=== PATIENT | male | born 1930 | race Caucasian/White ===

== ENCOUNTER 2017-03-05 11:29 | Emergency (ER) | payer MEDICARE, OTHER ==
--- NOTE | 2017-03-05 12:19 | UC ---
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 Now has sharp sensation with breathing or moving on lateral ribs. Denies SOB. - History Of Current Complaint Chief Complaint: UCUpperExtremity Stated Complaint: RIB INJURY Time Seen by Provider: 03/05/17 12:11 Hx Obtained From: Patient Onset/Duration: Sudden Onset Onset Of Pain: Immediate Severity Initially: Moderate Severity Currently: Mild Mechanism Of Injury: Fall From Height Of: - few inches Aggravating Factor(s): Movement, Deep Breathing, Cough Alleviating factor(s): Rest Associated Signs And Symptoms: Positive: Negative - Allergies/Home Medications Allergies/Adverse Reactions: Allergies Allergy/AdvReac Type Severity Reaction Status Date / Time No Known Allergies Allergy Verified 08/10/16 07:06 Home Medications: Home Medications Naproxen Sodium-Diphenhydramin [Aleve PM 220-25 mg] 1 tab PO 03/05/17 [History] PMH/Surg Hx/FS Hx/Imm Hx Endocrine History Of: Reports: Diabetes - TYPE 2 Cardiovascular History Of: Reports: Hypertension - not on meds Denies: Pacemaker/ICD Comment Only: Cardiac Disorders - multiple tests done - Surgical History Surgical History: Yes Surgery Procedure, Year, and Place: [place] [facility] [place] [facility] [place] [facility] [place] (approx 5 years ago) PARTIAL RIGHT KNEE REPLACEMENT, [facility] - Family History Known Family History: Positive: Hypertension - Social History Occupation: Retired Alcohol Use: Rare Substance Use Type: None Smoking Status (MU): Former Smoker Type: Cigarettes Amount Used/How Often: TRIED IT 50 YEARS AGO FOR ABOUT 3 WEEKS NONE SINCE Have You Smoked in the Last Year: No When Did the Patient Quit Smoking/Using Tobacco: 60 yrs ago - Immunization History Most Recent Influenza Vaccination: 2012 Most Recent Tetanus Shot: 2012 Most Recent Pneumonia Vaccination: Within 5 years Review of Systems Constitutional: Negative Skin: Negative Eyes: Negative ENT: Negative Respiratory: Negative Cardiovascular: Negative Gastrointestinal: Negative Genitourinary: Negative Motor: Negative Neurovascular: Negative Musculoskeletal: Arthralgia - R ribs Neurological: Negative Psychological: Negative All Other Systems Reviewed And Are Negative: Yes Physical Exam Triage Information Reviewed: Yes Appearance: Well-Appearing, Pain Distress - mild, with breathing Vital Signs: Initial Vital Signs Temp 98.4 F 03/05/17 11:49 Pulse 80 03/05/17 11:49 Resp 18 03/05/17 11:49 BP 165/83 03/05/17 11:49 Pulse Ox 100 03/05/17 11:49 Vital Signs Reviewed: Yes Eye Exam: Normal Eyes: Positive: Conjunctiva Clear ENT Exam: Normal ENT: Positive: Normal ENT inspection, Hearing grossly normal, Pharynx normal, TMs normal Dental: Negative: Percussion Tenderness @, Abscess @ Neck exam: Normal Respiratory: Positive: Normal breath sounds, No respiratory distress, No accessory muscle use. Negative: Chest non-tender - R ribs tenderness Cardiovascular Exam: Normal Cardiovascular: Positive: RRR, No Murmur Abdominal Exam: Normal Musculoskeletal Exam: Other - no pain with indirect stress Musculoskeletal: Positive: ROM Intact - baseline Neurological Exam: Normal Neurological: Positive: Alert Psychological Exam: Normal Skin Exam: Normal Truncal Trauma Course/Dx - Differential Dx/Diagnosis Provider Diagnoses: R rib contusion Discharge - Discharge Plan Condition: Stable Disposition: HOME Patient Education Materials: Rib Contusion (ED) Referrals: Mena Mcbride MD [Primary Care Provider] - Additional Instructions: I do not see signs of broken bones on your x-ray. If the radiologist sees a problem, I will call you at home later today. Please go to the hospital at any time if you become short of breath, have severe pain, or develop fever and cough. See Dr. Mcbride's office if you are unable to manage your pain with naproxen.
--- NOTE | 2017-03-05 13:23 | RAD ---
Indication: RIGHT rib pain post fall. Comparison: May 20, 2015 Technique: 5 view exam including PA chest and dedicated RIGHT rib views. Report: Suggestion of nondisplaced fractures at the RIGHT sixth and seventh ribs at the costochondral junctions. No pneumothorax or pleural effusion evident. Minimal bibasilar subsegmental atelectasis. The heart, pulmonary vasculature, and mediastinal contours are unremarkable. IMPRESSION: Suggestion of nondisplaced fractures of the RIGHT sixth and seventh ribs at the costochondral junctions corresponding with the region of clinical concern based on the skin marker. Negative for pneumothorax.
[2017-03-05 13:42] VITALS: BP 143/83
== END 2017-03-05 13:40 | disposition home or self-care (01) ==
LOC: UCEAST 11:29
DX: S20.211A Contusion of right front wall of thorax, initial encounter (principal); W19.XXXA Unspecified fall, initial encounter; Y93.89 Activity, other specified; Y92.9 Unspecified place or not applicable; E11.9 Type 2 diabetes mellitus without complications; I10 Essential (primary) hypertension; Z96.651 Presence of right artificial knee joint; Z87.891 Personal history of nicotine dependence
CPT/HCPCS: 99212; G0463

== ENCOUNTER 2018-03-19 10:08 | Emergency (ER) | payer MEDICARE, OTHER ==
[2018-03-19] MEDS ORDERED: NS 0.9% 1000 ML* 1,000 ML IV SCH (10:15)
--- NOTE | 2018-03-19 10:39 | RAD ---
INDICATION: CVA. COMPARISON: Comparison is made with a prior CT of the brain from October 24, 2011. TECHNIQUE: Contiguous axial sections of the brain were obtained from the skull base to the vertex without contrast. FINDINGS: The ventricles, cisterns and sulci are prominent consistent with diffuse atrophy. There is a focal CSF density area present in the left lentiform nucleus consistent with an old infarct. There are patchy areas of decreased attenuation in the subcortical and periventricular white matter most consistent with moderate chronic small vessel ischemic changes. There are CSF density collections adjacent to both frontal lobes which appear unchanged most consistent with chronic subdural hygromas. No other focal abnormality or mass effect is seen. There is no evidence for hemorrhage. No significant focal osseous abnormality is seen. The visualized portion of the paranasal sinuses and mastoid air cells appear clear. The results of this examination were called to the referring clinician at 1030 hours. IMPRESSION: 1. NO EVIDENCE FOR GROSS ACUTE INFARCT, MASS EFFECT OR HEMORRHAGE. 2. 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 3. FINDINGS SUGGESTIVE OF MODERATE CHRONIC SMALL VESSEL ISCHEMIC CHANGES. 4. BILATERAL CSF DENSITY COLLECTIONS ADJACENT TO THE FRONTAL LOBES MOST CONSISTENT WITH CHRONIC SUBDURAL HEMATOMAS, UNCHANGED.
[2018-03-19 10:54] LABS: ABS Basophils 0 10^3/ul (0-0.2); ABS Eosinophils 0.1 10^3/ul (0-0.6); ABS Lymphocytes 1.5 10^3/ul (1.0-4.8); ABS Monocytes 0.6 10^3/ul (0-0.8); ABS Neutrophils 4.5 10^3/ul (1.5-7.7); ABS Nucleated RBC 0 10^3/ul; Eosinophil % 1.4 % (0-6); Hematocrit 47 % (42-52); Hemoglobin 15.9 g/dl (14.0-18.0); Lymphocyte % 22.3 % (25-47); Mean Corpuscular HGB Conc 34 g/dl (31-36); Mean Corpuscular Hemoglobin 32 pg (27-31); Mean Corpuscular Volume 95 fL (80-94); Mean Platelet Volume 8.8 um3 (7.4-10.4); Nucleated Red Blood Cells % 0.1; Platelet Count 171 10^3/ul (150-450); Red Blood Count 4.95 10^6/ul (4.0-5.4); Red Cell Distribution Width 14 % (10.5-15); White Blood Count 6.7 10^3/ul (3.5-10.8)
[2018-03-19 11:00] LABS: INR 0.9 (0.77-1.02)
[2018-03-19 11:21] LABS: Urine Appearance Clear; Urine Blood Negative (Negative); Urine Color Yellow; Urine Ketones Negative (Negative); Urine Protein 2+(100 mg/dL) (Negative); Urine Specific Gravity 1.011 (1.010-1.030); Urine Urobilinogen Negative (Negative)
[2018-03-19 11:34] LABS: EGFR Non-African American 56.2 (>60)
[2018-03-19] MEDS ORDERED: Iodixanol* (CONTRAST) 320 MG/ML 100 ML SDV IV ONE (11:37)
[2018-03-19] MEDS ORDERED: hydrALAZINE IV* 20 MG/ML VIAL IV SLOW PU PRN (12:39)
[2018-03-19] MEDS ORDERED: Dextrose 50% Syringe 50 ML* 25 GM/50 ML SYRINGE IV PUSH PRN (12:56)
--- NOTE | 2018-03-19 12:57 | RAD ---
INDICATION: CVA. RIGHT-sided weakness. Difficulty speaking. COMPARISON: March 19, [address] October 24, 2011 CT angiogram head and neck. TECHNIQUE: Multidetector CT images were obtained from the aortic arch to the vertex of the head with 80 mL Visipaque 320 IV contrast. Arterial phase of enhancement. Multiplanar reformation including maximum intensity projection. 3-D arterial volume rendering. Stenosis estimations based on denominator of distal arterial diameter. NECK ANGIOGRAM REPORT: Normal configuration of the branch vessels at the aortic arch. Atherosclerotic plaque present without hemodynamic significant ostial stenosis. Tortuous RIGHT common carotid artery. Predominant calcific plaque at the RIGHT carotid bulb and proximal internal carotid artery results in approximate 50% short segment stenosis. Calcific and noncalcific plaque results in approximate 0.7 cm length segment approximate 99% stenosis at the proximal LEFT internal carotid artery. Mild calcific plaque at the ostium of the RIGHT vertebral artery without suggestion of hemodynamic significant stenosis. Mild calcific plaque at the distal segment of the LEFT vertebral artery with resulting approximate 50% stenosis. NECK ANGIOGRAM IMPRESSION: 1. Approximate 50% short segment stenosis at the proximal segment of the RIGHT internal carotid artery. 2. Calcific and noncalcific plaque results in approximate 0.7 cm length segment approximate 99% stenosis at the proximal LEFT internal carotid artery with severe progression compared with the 2011 exam. Only the peripheral component of the plaque is calcified. HEAD ANGIOGRAM REPORT: Mild circumferential calcific plaque at the bilateral carotid siphons without suggestion of hemodynamic significant stenosis. No hemodynamic significant stenosis of the M1 or M2 segments of the middle cerebral arteries or A1 or A2 segments of the anterior cerebral arteries. Patent basilar artery. Unremarkable cerebellar artery origins. Patent posterior cerebral arteries supplied primarily by the posterior circulation with normal variant hypoplastic posterior communicating arteries. No intracranial aneurysm evident. Normal opacification of the dominant dural venous sinuses. HEAD ANGIOGRAM IMPRESSION: No central intracranial arterial occlusion or hemodynamically significant stenosis evident. CPT II Codes: 3100F Results discussed with Dr. Mayer 03/19/2018 12:54 PM EDT
[2018-03-19] MEDS ORDERED: Aspirin 81 mg CHEW TAB* 81 MG TAB.CHEW PO SCH (13:00)
--- NOTE | 2018-03-19 14:08 | HP ---
ADDENDUM NOW INCLUDED ON THIS REPORT CC: Dr. Mcbride; Dr. Nur * HISTORY AND PHYSICAL: DATE OF ADMISSION: 03/19/18 - EMERGENCY DEPT. PRIMARY CARE PROVIDER: Dr. Mcbride. CHIEF COMPLAINT: Right-sided weakness. HISTORY OF PRESENT ILLNESS: Chidi Way is an 87-year-old male with history of diabetes, who presents to the hospital with complaints of right-sided weakness. The patient stated that at 6 a.m. he woke up, went to the bathroom, did okay. At 8:30 a.m., he woke up and could not move. He stated that his right side was flaccid. He subsequently was evaluated in the emergency department for stroke and was noted to have right-sided weakness, but his NIH scale was 2 at that point and improving. Also, his CT of the brain shows possibility of bilateral chronic subdural hematomas. On the basis of that, tPA was not administered. The patient currently feels better and his right side is getting stronger. 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 This history and physical is read in advance of the decision being made if the patient is actually admitted or going to be transferred. PAST MEDICAL HISTORY: 1. History of hypertension. 2. Diabetes. 3. History of chronic kidney disease, stage 2. 4. History of L4 vertebroplasty in 2007 and L3 vertebroplasty in 2012. 5. History of right knee arthroscopic surgery. MEDICATIONS: Include: 1. Multivitamin 1 tablet daily. 2. Lantus insulin 34 units at bedtime. 3. Lispro insulin 10 units subcutaneously 3 times a day with meals. 4. Lipitor 10 mg daily. ALLERGIES: No known drug allergies. FAMILY HISTORY: Positive for mother who of CVA at the age of 65 and father who of heart disease in his 70s. SOCIAL HISTORY: The patient denies any tobacco, alcohol or drug use. 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 His daughter, present by the bedside, is his healthcare proxy. He is a full code. REVIEW OF SYSTEMS: Please see history of present illness. All the remaining 12 systems were reviewed with the patient and were otherwise negative. PHYSICAL EXAMINATION GENERAL: The patient is a very pleasant 87-year-old male, who is in no acute distress. Alert, awake, and oriented x3. VITAL SIGNS: Blood pressure currently of 160/94, but the patient presented with a blood pressure of 215/107. Heart rate currently is 87, respiratory rate 21, oxygen saturation 97% on room air, temperature of 98.3. HEENT: Head: Atraumatic, normocephalic. Eyes: Pupils are equal, reactive to light and accommodation. Oropharynx clear. Mucosa moist. NECK: Supple. No JVD. No bruits bilaterally. RESPIRATORY: Clear to auscultation bilaterally. CARDIOVASCULAR: Regular rate and rhythm. systolic murmur, localized in the right upper sternal border at 3/6 radiating to bilateral carotids. ABDOMEN: Soft, nontender. Bowel sounds are present in all 4 quadrants. EXTREMITIES: There is no edema. Pulses are 2+ bilaterally. No clubbing or cyanosis. NEURO EVALUATION: The patient has right-sided weakness. His right shoulder shrug is 4/5. He has mild right pronator drift. His right hand reserve operator is 4+/5. His right lower extremity motor is 4+/5. Ambulation was not checked during the visit. His speech is clear. Sensation grossly intact. PSYCHIATRIC EVALUATION: The patient is pleasant, cooperative with evaluation, oriented x3 with no evidence of anxiety or depression. SKIN: On evaluation of the skin, no ecchymotic area of rashes noted. DIAGNOSTIC STUDIES/LAB DATA: Laboratory data showed white blood cell count of 6.7, hemoglobin of 15.9, hematocrit of 47, MCV of 95, and platelets of 171. INR was 0.9. Sodium was 139, potassium 4.1, chloride 106, carbon dioxide 25, BUN 17, creatinine 1.22 consistent with prior. Liver function tests were unremarkable. Random glucose 135. Urinalysis positive for trace rbc's and trace protein. 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 The patient's EKG showed normal sinus rhythm with heart rate of 74 beats per minute, CO of 348 which is a very significant first-degree AV block and right bundle branch block. Comparing with an EKG from 2013, the patient at that point also had prolonged CO interval, currently it is more advanced. His right bundle branch block is chronic. Brain CT, impression: "No evidence for gross acute infarct, mass effect or hemorrhage. Old infarct in the left lentiform nucleus. Findings suggestive for moderate chronic small vessel ischemic changes. Bilateral CSF density collections adjacent to the frontal lobes most consistent with chronic subdural hematomas, unchanged from 2012." ASSESSMENT AND PLAN: 1. Acute cerebrovascular accident with residual right-sided weakness that is improving. At this point, the patient was not a good candidate for tPA due to his history of chronic subdural hematomas as well as his improvement. He does have significant left-sided carotid stenosis and at this point he is being evaluated for possibility of transfer from the emergency department to a tertiary care center where a vascular surgeon is available. This history and physical/consult is being dictated in case the patient was admitted to our facility. Dr. Nur already consulted on the patient from a Neurology standpoint. He recommended baby aspirin on a daily basis. If he is going to be admitted, he is going to be placed on neuro checks and Physical Therapy and Occupational Therapy is going to see the patient in consultation. We will keep his blood pressures with permissive hypertension in the 180s range. 2. For his diabetes, the patient is going to be placed on insulin sliding scale. Hemoglobin A1c is going to be checked in the morning. 3. For his dyslipidemia, we will increase the patient's Lipitor to 20 mg daily and check fasting lipid profile in the morning. 4. In regards to the patient's carotid stenosis, as mentioned above, [facility] from [facility] was notified and we will await decision. 5. The patient's code status is full and his surrogate and healthcare proxy is his daughter. TIME SPENT: Approximately 72 minutes were spent on evaluation of this patient in the emergency department, more than half of that time was spent [id number] with the patient doing the interview and physical exam. [id number] #: [id number] #: [id number] MISSAEL
--- NOTE | 2018-03-19 14:28 | ED ---
Gabriel Rosales Tiffany, scribed for Fernando Mayer on 03/19/18 at 1027 . Neurological HPI - HPI Summary HPI Summary: 87 y/o M YADI presents with right-sided weakness since 08:00 on 03/19/18. Symptoms aggravated and alleviated by nothing. EMS delivers HPI. Last known normal was 06:30 when patient woke up, went to bathroom then back to bed. At 08: 00, patient woke up, unable to move right side for 30 minutes. Upon retirement rescue team arrival to scene at 09:15, pt has difficulty forming words. Upon EMS arrival to scene, pt alert and oriented. En route, pt hypertensive, no slurred speech, no diaphoresis. - History of Current Complaint Stated Complaint: STROKE LIKE ACTIVITY Time Seen by Provider: 03/19/18 10:10 Hx Obtained From: EMS Onset/Duration: Sudden Onset, Started hours ago - 2 hours, Still Present Neurological Deficit Location: RUE, RLE Aggravating: Nothing Alleviating: Nothing - Allergy/Home Medications Allergies/Adverse Reactions: Allergies Allergy/AdvReac Type Severity Reaction Status Date / Time No Known Allergies Allergy Verified 08/10/16 07:06 Home Medications: Home Medications Atorvastatin* [Lipitor*] 10 mg PO DAILY 03/19/18 [History Confirmed 03/19/18] Insulin GLARGINE(*) [Lantus(*)] 34 units SUBCUT BEDTIME 03/19/18 [History Confirmed 03/19/18] Insulin LISPRO* [HumaLOG*] 10 units SUBCUT TID AC PRN 03/19/18 [History Confirmed 03/19/18] Multivitamins/Minerals TAB* [Theragran/minerals TAB*] 1 tab PO DAILY 03/19/18 [ History Confirmed 03/19/18] PMH/Surg Hx/FS Hx/Imm Hx Previously Healthy: No Endocrine/Hematology History: Reports: Hx Diabetes - TYPE 2 Cardiovascular History: Reports: Hx Hypertension - not on meds, Other Cardiovascular Problems/Disorders - ELEVATED CHOLESTEROL CONTROL WITH MED Denies: Hx Pacemaker/ICD Musculoskeletal History: Reports: Hx Arthritis - LOWER BACK, Hx Back Problems - Vertebralplasty, lumbar sprain Sensory History: Reports: Hx Contacts or Glasses - GLASSES Denies: Hx Hearing Aid Opthamlomology History: Reports: Hx Contacts or Glasses - GLASSES Psychiatric History: Denies: Hx Panic Disorder - Surgical History Surgery Procedure, Year, and Place: 2008 VERTEBROPLASTY, [facility] [place]. 2009 CARDIAC CATHERIZATION, [facility] [place]. 2013 L3 VERTEBROPLASTY, [facility] [place]. 2011 (approx 5 years ago) PARTIAL RIGHT KNEE REPLACEMENT, JOELLEN Hx Anesthesia Reactions: No Infectious Disease History: Denies: Hx Clostridium Difficile, Hx Hepatitis, Hx Human Immunodeficiency Virus (HIV), Hx of Known/Suspected MRSA, Hx Shingles, Hx Tuberculosis, Hx Known/ Suspected VRE, Hx Known/Suspected VRSA, History Other Infectious Disease - Family History Known Family History: Positive: Hypertension - Social History Alcohol Use: Rare Hx Substance Use: No Substance Use Type: Reports: None Hx Tobacco Use: Yes Smoking Status (MU): Former Smoker Type: Cigarettes Amount Used/How Often: TRIED IT 50 YEARS AGO FOR ABOUT 3 WEEKS NONE SINCE Have You Smoked in the Last Year: No Review of Systems Negative: Skin Diaphoresis Positive: Weakness - Right sided. Negative: Slurred Speech All Other Systems Reviewed And Are Negative: Yes Physical Exam - Summary Physical Exam Summary: Appearance: Well appearing, no pain distress Skin: warm, dry, reflects adequate perfusion Head/face: normal Eyes: EOMI, MARIA E ENT: normal Neck: supple, non-tender Respiratory: CTA, breath sounds present Cardiovascular: RRR, pulses symmetrical Abdomen: non-tender, soft Bowel: present Musculoskeletal: normal, strength/ROM intact Neuro: normal, sensory motor intact, A&Ox3 Triage Information Reviewed: Yes Vital Signs On Initial Exam: Initial Vitals Temp Pulse Resp BP Pulse Ox 98.3 F 72 12 215/107 96 03/19/18 10:20 03/19/18 10:20 03/19/18 10:20 03/19/18 10:20 03/19/18 10:20 Vital Signs Reviewed: Yes Diagnostics - Vital Signs Vital Signs Temp Pulse Resp BP Pulse Ox 03/19/18 12:17 55 16 193/80 96 03/19/18 12:00 55 17 97 03/19/18 11:18 56 11 164/84 96 03/19/18 11:00 19 03/19/18 10:47 15 198/97 03/19/18 10:29 73 17 215/107 96 03/19/18 10:20 98.3 F 72 18 215/107 96 - Laboratory Lab Results: Lab Results 03/19/18 03/19/18 03/19/18 Range/Units 10:38 10:38 10:38 WBC 6.7 (3.5-10.8) 10^3/ul RBC 4.95 (4.0-5.4) 10^6/ul Hgb 15.9 (14.0-18.0) g/dl Hct 47 (42-52) % MCV 95 H (80-94) fL MCH 32 H (27-31) pg MCHC 34 (31-36) g/dl RDW 14 (10.5-15) % Plt Count 171 (150-450) 10^3/ul MPV 8.8 (7.4-10.4) um3 Neut % (Auto) 67.0 (38-83) % Lymph % (Auto) 22.3 L (25-47) % Stephens % (Auto) 8.7 H (0-7) % Eos % (Auto) 1.4 (0-6) % Baso % (Auto) 0.6 (0-2) % Absolute Neuts (auto) 4.5 (1.5-7.7) 10^3/ul Absolute Lymphs (auto) 1.5 (1.0-4.8) 10^3/ul Absolute Monos (auto) 0.6 (0-0.8) 10^3/ul Absolute Eos (auto) 0.1 (0-0.6) 10^3/ul Absolute Basos (auto) 0 (0-0.2) 10^3/ul Absolute Nucleated RBC 0 10^3/ul Nucleated RBC % 0.1 INR (Anticoag Therapy) 0.90 (0.77-1.02) APTT 31.0 (26.0-36.3) seconds Sodium 139 (139-145) mmol/L Potassium 4.1 (3.5-5.0) mmol/L Chloride 106 (101-111) mmol/L Carbon Dioxide 25 (22-32) mmol/L Anion Gap 8 (2-11) mmol/L BUN 17 (6-24) mg/dL Creatinine 1.22 H (0.67-1.17) mg/dL Est GFR ( Amer) 72.3 (>60) Est GFR (Non-Af Amer) 56.2 (>60) BUN/Creatinine Ratio 13.9 (8-20) Glucose 135 H (70-100) mg/dL POC Glucose (mg/dL) (70-100) mg/dL Calcium 9.3 (8.6-10.3) mg/dL Total Bilirubin 0.80 (0.2-1.0) mg/dL AST 22 (13-39) U/L ALT 14 (7-52) U/L Alkaline Phosphatase 55 (34-104) U/L Total Protein 7.1 (6.4-8.9) g/dL Albumin 3.8 (3.2-5.2) g/dL Globulin 3.3 (2-4) g/dL Albumin/Globulin Ratio 1.2 (1-3) Urine Color Urine Appearance Urine pH (5-9) Ur Specific Gallaway (1.010-1.030) Urine Protein (Negative) Urine Ketones (Negative) Urine Blood (Negative) Urine Nitrate (Negative) Urine Bilirubin (Negative) Urine Urobilinogen (Negative) Ur Leukocyte Esterase (Negative) Urine WBC (Auto) (Absent) Urine RBC (Auto) (Absent) Urine Bacteria (Absent) Urine Glucose (Negative) 03/19/18 03/19/18 Range/Units 11:01 11:02 WBC (3.5-10.8) 10^3/ul RBC (4.0-5.4) 10^6/ul Hgb (14.0-18.0) g/dl Hct (42-52) % MCV (80-94) fL MCH (27-31) pg MCHC (31-36) g/dl RDW (10.5-15) % Plt Count (150-450) 10^3/ul MPV (7.4-10.4) um3 Neut % (Auto) (38-83) % Lymph % (Auto) (25-47) % Stephens % (Auto) (0-7) % Eos % (Auto) (0-6) % Baso % (Auto) (0-2) % Absolute Neuts (auto) (1.5-7.7) 10^3/ul Absolute Lymphs (auto) (1.0-4.8) 10^3/ul Absolute Monos (auto) (0-0.8) 10^3/ul Absolute Eos (auto) (0-0.6) 10^3/ul Absolute Basos (auto) (0-0.2) 10^3/ul Absolute Nucleated RBC 10^3/ul Nucleated RBC % INR (Anticoag Therapy) (0.77-1.02) APTT (26.0-36.3) seconds Sodium (139-145) mmol/L Potassium (3.5-5.0) mmol/L Chloride (101-111) mmol/L Carbon Dioxide (22-32) mmol/L Anion Gap (2-11) mmol/L BUN (6-24) mg/dL Creatinine (0.67-1.17) mg/dL Est GFR ( Amer) (>60) Est GFR (Non-Af Amer) (>60) BUN/Creatinine Ratio (8-20) Glucose (70-100) mg/dL POC Glucose (mg/dL) 132 H (70-100) mg/dL Calcium (8.6-10.3) mg/dL Total Bilirubin (0.2-1.0) mg/dL AST (13-39) U/L ALT (7-52) U/L Alkaline Phosphatase (34-104) U/L Total Protein (6.4-8.9) g/dL Albumin (3.2-5.2) g/dL Globulin (2-4) g/dL Albumin/Globulin Ratio (1-3) Urine Color Yellow Urine Appearance Clear Urine pH 7.0 (5-9) Ur Specific Gall[place] 1.011 (1.010-1.030) Urine Protein 2+(100 mg/dl) A (Negative) Urine Ketones Negative (Negative) Urine Blood Negative (Negative) Urine Nitrate Negative (Negative) Urine Bilirubin Negative (Negative) Urine Urobilinogen Negative (Negative) Ur Leukocyte Esterase Negative (Negative) Urine WBC (Auto) Trace(0-5/hpf) (Absent) Urine RBC (Auto) 1+(3-5/hpf) A (Absent) Urine Bacteria Absent (Absent) Urine Glucose Negative (Negative) Result Diagrams: 03/19/18 10:38 03/19/18 10:38 Lab Statement: Any lab studies that have been ordered have been reviewed, and results considered in the medical decision making process. - CT Brain CT Interpretation Completed By: Radiologist - 1. NO EVIDENCE FOR GROSS ACUTE INFARCT, MASS EFFECT OR HEMORRHAGE. 2. 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 3. FINDINGS SUGGESTIVE OF MODERATE CHRONIC SMALL VESSEL ISCHEMIC CHANGES. 4. BILATERAL CSF DENSITY COLLECTIONS ADJACENT TO THE FRONTAL LOBES MOST CONSISTENT WITH CHRONIC SUBDURAL HEMATOMAS, UNCHANGED. ED physician has reviewed this report. - EKG 10:24 Cardiac Rate: NL - 74 BPM EKG Rhythm: Sinus Rhythm EKG Interpretation: Right bundle branch block - Additional Comments Diagnostic Additional Comments: Head CTA, per radiologist: NECK ANGIOGRAM IMPRESSION: 1. Approximate 50% short segment stenosis at the proximal segment of the RIGHT internal carotid artery. 2. Calcific and noncalcific plaque results in approximate 0.7 cm length segment approximate 99% stenosis at the proximal LEFT internal carotid artery with severe progression compared with the 2012 exam. Only the peripheral component of the plaque is calcified. HEAD ANGIOGRAM IMPRESSION: No central intracranial arterial occlusion or hemodynamically significant stenosis evident. ED physician has reviewed this report. NIH Scale - NIH Scale Level of Consciousness: Alert/Keenly Responsive Ask Patient the Month and His/Her Age: Both Correct Ask Pt to Open/Close Eyes and Therapeutic Sales Specialist/Release Non-Paretic Hand: Both Correctly Best Gaze (Only Horizontal Eye Movement): Normal Visual Field Testing: No Visual Loss Facial Paresis-Pt to Smile & Close Eyes or Grimace Symmetry: Normal/Symmetrical Motor Function - Right Arm: Drifts LT 10 seconds Motor Function - Left Arm: No Drift-Holds 10 Seconds Motor Function - Right Leg: Drifts LT 10 seconds Motor Function - Left Leg: No Drift-Holds 10 Seconds Limb Ataxia-Must be out of Proportion to Weakness Present: Absent Sensory (Use Pinprick to Test Arms/Legs/Trunk/Face): Normal Best Language (Describe Picture, Name Items): No Aphasia Dysarthria (Read Several Words): Normal Extinction and Inattention: No Abnormality Total Score: 2 Course/Dx - Course Course Of Treatment: 87 y/o M YADI presents with right-sided weakness since 08: 00 on 03/19/18. Bloodwork, UA, imaging obtained. Consulted patient care with neurology and hospitalist. Patient will be transferred to Dr. René Osborn at [facility] ([place] - Differential Dx Differential Diagnoses Neuro: Positive: Cerebrovascular Accident, Hematoma, Intracranial Bleed, Transient Ischemic Attack - Diagnoses Provider Diagnoses: CVA (cerebral vascular accident) During the Visit The Following Alert/Code Occurred: Code Lawrence - At 10:08 - Physician Notifications Discussed Care Of Patient With: Brittani Nur Time Discussed With Above Provider: 10:28 Instructed by Provider To: Other - Dr. Nur, neurology, agrees to see patient and evaluates patient at 10:30. At 14:12, patient accepted to Dr. René Osborn at [facility] ([place] - Critical Care Time Critical Care Time: 30-74 min - 30 min Discharge - Sign-Out/Discharge Documenting (check all that apply): Discharge/Admit/Transfer - Discharge Plan Condition: Fair Disposition: TRANS HIGHER LVL OF CARE FAC - Billing Disposition and Condition Condition: FAIR Disposition: EMTALA The documentation as recorded by the Gabriel guidry Tiffany accurately reflects the service I personally performed and the decisions made by Moreno hancock Emmanuel.
--- NOTE | 2018-03-19 14:49 | HP ---
ADDENDUM: Please note that the patient does have a heart murmur, which is a systolic murmur localized in the right upper sternal border at 3/6 radiating to bilateral carotids. [id number]/[facility] #: [id number] MTDD
[2018-03-19 15:07] VITALS: BP 194/77
--- NOTE | 2018-03-19 15:14 | CONS ---
NEW NEUROLOGY CONSULTATION REPORT: DATE OF CONSULT: 03/19/18 CONSULTING PHYSICIAN: Fernando Mayer MD. REASON FOR CONSULT: Neurology was consulted by Dr. Mayer to evaluate the patient for stroke. Code benito was activated. The history was obtained from the patient and the patient's daughter at bedside. CHIEF COMPLAINT: Right-sided weakness. HISTORY OF PRESENT ILLNESS: Mr. Chidi Way is a pleasant left-handed 87-year- old man with a history of diabetes mellitus for 40 years, who presented to [facility] with right-sided weakness. The patient woke up at 6 a.m. this morning to use the restroom. He was able to ambulate without any weakness. Then, he went back to sleep. He woke up again around 8 to 8:30 a.m. and was having trouble standing up. He waited about 15-20 minutes to contact his daughter to let her know that he was experiencing right-sided weakness. He denied any swallowing impairment or speech abnormalities. He denied any headaches, visual disturbance, or paresthesias. He has never had any similar symptoms in the past. He is aspirin naive. He does take Lipitor for dyslipidemia. NIH stroke scale at 10:50 was 2 for mild right drift of the arm and leg. A code benito was called at 10:08. The patient was deemed not a candidate for IV tPA due to low NIH stroke scale, elevated blood pressure, and outside the therapeutic window at 10:55. PAST MEDICAL HISTORY: 1. Coronary artery disease. 2. Myocardial infarction in 2007. 3. Insulin-dependent diabetes mellitus. 4. Hypertension. PAST SURGICAL HISTORY: Previous surgeries include: 1. Lumbar spine surgery. 2. 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 3. Right knee arthroscopy. MEDICATIONS: 1. Lantus. 2. NovoLog. 3. Atorvastatin. 4. Multivitamin. ALLERGIES: OXYCODONE. SOCIAL HISTORY: Mr. Way is and lives with his who suffers from dementia. He is accompanied by his daughter. He does not smoke. He used to chew tobacco, but stopped 15 years ago. He drinks 1 beer occasionally a week. FAMILY HISTORY: His mother had a stroke. REVIEW OF SYSTEMS: A 14-point review of systems was obtained and otherwise negative except for what was mentioned in the HPI. In addition, the patient denied any chest pain, shortness of breath, palpitations. PHYSICAL EXAMINATION: Vital Signs: Temperature 98.3, pulse of 73, respirations of 18, oxygen saturation of 96%, blood pressure of 215/107. General: Ill-appearing elderly man, in no acute distress. He is alert, cooperative, and appears younger than stated age. Head is normocephalic, atraumatic. Eyes: Conjunctivae and corneas are clear. Neck: Supple and symmetric. No carotid bruits. Lungs: Clear to auscultation bilaterally, nonlabored breathing. Cardiovascular: Regular rhythm. S1, S2 is normal. Radial pulses are palpable. Extremities: Normal range of motion with no cyanosis. Skin: No skin lesions or laceration. Psychiatric: Board and normal mood. Neurological: Mental status: Awake and alert, oriented to person, place , time, and general circumstance. Speech and language including expression, naming, repetition, and comprehension were assessed and found to be normal. Cranial nerves, normal to confrontation bilaterally, pupils were mid range and reactive to light, normal consensual response, extraocular muscles are intact with no ptosis. No conjugate or asymmetrical nystagmus. Sensation is intact in the forehead, cheeks, and jaw region bilaterally. There is no facial droop or facial asymmetry while smiling and wrinkling of the forehead. Able to hear throughout the history process. Symmetrical palatal elevation. Normal strength against resistance in the shoulder shrug. The tongue is symmetric in midline with no atrophy or fasciculation. Motor (right/left): Mild right- sided pronator drift in the upper and lower extremity. There is a high amplitude, low frequency tremor, mostly in action on the right side. Normal bulk and tone throughout. No fasciculation. Neck extension is 5. Shoulder range of motion is full. Shoulder abduction 4/5. Elbow flexion 4/5, extension 4/5. Wrist flexion 4/5. Finger flexion 4/5, abduction 4/5. Hip flexion 4/5, abduction 4/5. Knee flexion 4/5, extension 4/5. Ankle dorsiflexion 4/5. Reflexes (right/left): Brachioradialis 2/2, biceps 2/2, triceps 2/2, patellar 1 /1, ankle 0/0, plantar flexor bilaterally. Sensation intact to light touch throughout. Normal vibration and proprioception at the great toes. Coordination: Normal [id number] and rapid alternating movement. Gait was not assessed due to significantly elevated blood pressure. LABORATORY DATA/IMAGING/ANOTHER DIAGNOSTIC TESTING: Laboratory values: WBC of 6.7, MCV 95, platelets of 171. APTT is 31. INR is 0.90. Radiological testing, brain CT head without contrast, stroke protocol: Completed on 03/19/18, there is an old infarct in the left lentiform nucleus. There is no evidence of gross acute infarction. Bilateral CSF density collection adjacent to the frontal lobes most consistent with chronic subdural hematoma, which has been unchanged. There is no evidence for gross acute infarction. ASSESSMENT: 1. Mr. Way is an 87-year-old man who presented with acute onset right hemiparesis. Neurological assessment revealed a right arm and leg weakness. I suspect the patient had a left subcortical MCA lacunar stroke involving the left lenticulostriate branches. The cause of the stroke is distal small vessel occlusion related to chronic hypertension. We cannot entirely exclude proximal artery to artery emboli from the ICA. ADDENDUM: pt had a CTA head and neck that showed high grade stenosis in the left ICA. Risk factors are hypertension, coronary artery disease, age, and previous stroke. NIH stroke scale 2. He is not a candidate for IV tPA due to low NIH stroke scale, elevated blood pressure , age, and chronic subdural hematomas. The patient aspirin naive. 2. Hypertensive emergency - current systolic blood pressure measuring 200 to 215. 3. History of diabetes mellitus, type 2. Glucose is under control. We will check an Accu-Chek before the CMP yields. RECOMMENDATIONS: Patient is outside the therapeutic window for IV tPA. We will assess for possible large vessel occlusion, since he still is within the 24 hour window. Please admit patient to the hospitalist service for further stroke workup and post-stroke monitoring. Neuro checks every 4 hours. Order MRI brain without contrast. Please obtain a stat CTA head and neck to evaluate for large vessel occlusion. Please order a 2D transthoracic echo. Place on telemetry. Check fasting lipid panel, TSH, B12. Aspirin 81 mg now and continue 81 mg daily thereafter. We will have to closely monitor the patient to make sure he does not have any evolution or worsening of the chronic subdural hematomas. Follow up lipid panel and possibly increase atorvastatin to high intensity statin at 40 or 80 mg. Continue permissive blood pressure control of systolic blood pressure between 160 to less than 180 and diastolic blood pressure between 90 to less than 110 mmHg. Please consult PT/OT/SCALE ADJUSTER to evaluate and treat. Bedside swallow evaluation should be done and if the patient fails, he should be kept n.p.o. We discussed stroke education. Do not place a urinary catheter unless there is evidence of urinary retention. VTE prophylaxis with subcutaneous heparin injection 5000 units twice daily. Anticoagulation therapy is not indicated at this point, as the patient has no evidence of atrial fibrillation. In regards to the subdural hematomas, these are chronic and close monitoring is recommended. TIME SPENT: I spent a total of 75 minutes of critical care time and greater than 50% of that was spent directly reviewing the medical chart, obtaining history, examining the patient, education, counseling, and discussing the treatment plan and prognosis. The patient and daughter at bedside agreed not to proceed with tPA therapy since it is contraindicated at this point. We both also agreed to proceed with further stroke workup. 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 [facility] was contacted and accepted to take the patient given the acute stroke, and pending total occlusion of the left ICA. The patient needs to be in a large tertiary center where a vascular surgeon is available for surgery the next 24- 48 hours or if he would have distal embolization of the clot then would need mechanical thrombectomy. I discussed this with the patient and his daughter at bedside who agreed with the transfer. MISSAEL
[2018-03-19] MEDS ORDERED: Insulin LISPRO* 1 UNITS UNIT SUBCUT SCH (16:30)
[2018-03-19] MEDS ORDERED: Heparin VIAL(*) 5000 UNITS/ML VIAL (FIVE THOUSAND) SUBCUT SCH (21:00)
[2018-03-19] MEDS ORDERED: Atorvastatin* 20 MG TAB PO SCH (21:00)
[2018-03-20] MEDS ORDERED: Atorvastatin* 10 MG TAB PO SCH (09:00)
== END 2018-03-19 17:08 | disposition short-term general hospital (02) ==
LOC: ED 10:08 → UNDOADMIN 12:35 → MEDTELE 12:35 → UNDODISIN 13:51
DX: I63.9 Cerebral infarction, unspecified (principal); Z87.891 Personal history of nicotine dependence; R53.1 Weakness; E11.9 Type 2 diabetes mellitus without complications; Z86.79 Personal history of other diseases of the circulatory system; Z98.61 Coronary angioplasty status
CPT/HCPCS: 36415; 70450; 70496; 70498; 80053; 81003; 81015; 85025; 85610; 85730; 87086; 93005; 96360; 99285; A9270-GY; Q9967